=== PATIENT | female | born 1985 | race Caucasian/White ===

== ENCOUNTER → 2020-10-29 | Day surgery (SDC) | payer OTHER ==
[~2020-10-29] MED LIST: MOTRIN600 MG PO
[2020-10-29 10:35] LABS: HCG (URINE) SCREEN NEGATIVE (NEGATIVE)
[2020-10-29 10:48] LABS: BASOPHIL 0.7 % (0-2); EOSINOPHIL 4.8 % (0-5); HCT 40.9 % (37.0-47.0); HGB 13.4 g/dl (12.5-16.0); MCH 27.9 pg (25.0-31.0); MCHC 32.8 g/dL (32.0-36.0); MONOCYTE 6.7 % (0-12); MPV 10.4 fL (6.0-9.5); NEUTROPHIL 57.6 % (41-80); NRBC 0; PLT 278 K/uL (150-400); RBC 4.81 M/uL (4.20-5.40); RDW 13.4 % (11.5-14.0); WBC 8.5 K/uL (4.0-10.5)
== END | disposition home or self-care (01) ==
LOC: FAS 08:37
PROVIDERS: Oral & Maxillofacial Surgery
DX: K02.63 Dental caries on smooth surface penetrating into pulp (principal); K04.1 Necrosis of pulp; E66.01 Morbid (severe) obesity due to excess calories; F43.10 Post-traumatic stress disorder, unspecified; R01.1 Cardiac murmur, unspecified; Z88.1 Allergy status to other antibiotic agents; Z88.5 Allergy status to narcotic agent; Z88.0 Allergy status to penicillin; Z20.822 Contact with and (suspected) exposure to COVID-19; Z98.890 Other specified postprocedural states
CPT/HCPCS: 36415; 84703; 85025; 93005; J1100; J1170; J2001; J2250; J2405; J2704; J3010; J7120